=== PATIENT | male | born 1965 | race Two or more races ===

== ENCOUNTER 2023-03-02 07:58 | Emergency (ER) | payer MEDICARE ==
[~2023-03-02] VITALS: Ht 177.8 cm; Wt 83.6 kg
[2023-03-02 08:06] VITALS: BP 161/89; PULSE 96; RESP 18; TEMP 98.8
[2023-03-02] MEDS ORDERED: TRAZ-257 PO (08:06)
[2023-03-02] MEDS ORDERED: ACETAMINOPHEN 500 MG TABLET PO ONE (08:30)
[2023-03-02 08:34] LABS: COVID AG,FIA SOURCE NASAL SWAB
[2023-03-02 09:04] LABS: SARS-COV2 (COVID) ANTIGEN,FIA Negative (Negative)
[2023-03-02 09:05] LABS: INFLUENZA TYPE A NEGATIVE FOR TYPE A (NEGATIVE); INFLUENZA TYPE B NEGATIVE FOR TYPE B (NEGATIVE)
[2023-03-02] MEDS ORDERED: ACET-3385 PO (09:08)
[2023-03-02] MEDS ORDERED: HYDR-4723 PO (16:11)
== END 2023-03-02 10:05 | disposition home or self-care (01) ==
LOC: EMS 08:14
DX: B34.9 Viral infection, unspecified (principal); F17.210 Nicotine dependence, cigarettes, uncomplicated; Z98.890 Other specified postprocedural states; Z20.822 Contact with and (suspected) exposure to COVID-19
CPT/HCPCS: 87804; 99283

== ENCOUNTER 2023-03-02 14:42 | Emergency (ER) | payer MEDICARE ==
[~2023-03-02] VITALS: Ht 177.8 cm; Wt 70.0 kg
[~2023-03-02 14:42] MED LIST: ACET-3385 PO; TRAZ-257 PO
[2023-03-02 14:52] VITALS: BP 158/91; PULSE 85; RESP 16; TEMP 98.3
[2023-03-02] MEDS ORDERED: HYDROCODONE/ACETAMINOPHEN 5-325 MG TABLET PO ONE (15:45)
[2023-03-02] MEDS ORDERED: GENTAMICIN SULFATE 0.3% OPHTHALMIC SOLUTION 5 ML OU ONE (15:45)
[2023-03-02] MEDS ORDERED: HYDR-4723 PO (16:11)
== END 2023-03-02 17:18 | disposition home or self-care (01) ==
LOC: EMS 14:52
DX: B30.9 Viral conjunctivitis, unspecified (principal); J06.9 Acute upper respiratory infection, unspecified; F17.210 Nicotine dependence, cigarettes, uncomplicated; Z20.822 Contact with and (suspected) exposure to COVID-19
CPT/HCPCS: 99283

== ENCOUNTER 2023-03-03 17:01 | Emergency (ER) | payer MEDICARE ==
[~2023-03-03] VITALS: Ht 177.8 cm; Wt 83.6 kg
[~2023-03-03 17:01] MED LIST changes: +HYDR-4723 PO
[2023-03-03 17:16] VITALS: BP 105/70; PULSE 99; RESP 20; TEMP 99
[2023-03-03] MEDS ORDERED: HYDROCODONE/ACETAMINOPHEN 5-325 MG TABLET PO ONE (17:30)
[2023-03-03] MEDS ORDERED: ERYTHROMYCIN 0.5% 3.5 GM TUBE OPHTHALMIC OINTMENT OU ONE (17:30)
== END 2023-03-03 17:52 | disposition home or self-care (01) ==
LOC: EMS 17:01
DX: H57.13 Ocular pain, bilateral (principal); F17.210 Nicotine dependence, cigarettes, uncomplicated
CPT/HCPCS: 99283